=== PATIENT | female | born 1970 | race Caucasian/White ===

== ENCOUNTER → 2023-04-08 11:00 | Outpatient (REF) | payer OTHER, SELFPAY | LOC: HWWDC 11:00 | PROVIDERS: ATTENDING PHYSICIAN Physician Assistant Medical | DX: Z12.31 Encounter for screening mammogram for malignant neoplasm of breast (principal) | CPT/HCPCS: 77063; 77067 ==

== ENCOUNTER 2023-08-21 12:18 | Emergency (ER) | payer OTHER, SELFPAY ==
[2023-08-21 12:19] VITALS: BP 160/110
[2023-08-21 12:36] VITALS: BP 145/127
[2023-08-21 12:53] LABS: % Basophils 1.7 % (0-2); % Eosinophils 3.9 % (0-6); % Immature Granulocytes 0.3 % (0-0.5); % Lymphocytes 30.9 % (20.5-51.1); % Neutrophils 58.2 % (42.2-75.2); Absolute Basophils 0.1 10^3/uL (0-0.2); Absolute Eosinophils 0.3 10^3/uL (0-0.7); Absolute Monocytes 0.3 10^3/uL (0.1-0.6); Absolute Neutrophils 3.8 10^3/uL (1.4-6.5); Hematocrit 39.3 % (37.0-47.0); Hemoglobin 13.8 g/dL (12.0-16.0); Mean Corp Hgb Conc. 35.1 g/dL (33.0-37.0); Mean Corpuscular Hgb 29.2 pg (27.0-31.0); Mean Corpuscular Volume 83.1 fL (81.0-99.0); Mean Platelet Volume 8.6 fL (7.4-10.4); Nucleated Red Blood Cells % 0 %; Platelet Count 360 10^3/uL (130-400); Red Blood Cell Count 4.73 10^6/uL (4.20-5.40); White Blood Cell Count 6.6 10^3/uL (4.8-10.8)
[2023-08-21 13:00] VITALS: BP 133/86
[2023-08-21 13:09] LABS: ALT (SGPT) 19 U/L (0-35); AST (SGOT) 27 U/L (14-36); Albumin 4.6 g/dl (3.5-5.0); Alkaline Phosphatase 129 U/L (38-126); Blood Urea Nitrogen 13 mg/dl (7-17); Calcium 9.9 mg/dl (8.4-10.2); Carbon Dioxide 25 mmol/L (22-30); Chloride 108 mmol/L (98-107); Glucose 109 mg/dl (70-99); Potassium 4.5 mmol/L (3.5-5.1); Sodium 141 mmol/L (135-145); Total Protein 7.7 g/dl (6.3-8.2); eGFR > 60.00
[2023-08-21 13:21] LABS: Troponin I < 0.012 ng/ml
[2023-08-21 13:52] LABS: TSH 0.99 uIU/ml (0.47-4.68)
[2023-08-21 14:00] VITALS: BP 131/91
--- NOTE | 2023-08-21 14:26 | ED.GENMED ---
History of Present Illness
General
Chief Complaint: Heart Rate Problem
Source: patient
Time Seen by Provider: 08/21/23 12:59
Travel History
Have you had any contact with someone who has COVID-19?: No
Do you have any symptoms of coronavirus? Fever > 100 degrees, chills, cough, shortness of breath, sore throat, loss of taste or smell, muscle aches, or headache?: No
History of Present Illness
History of Present Illness:
53-year-old female with past medical history of asthma and frequent headaches presenting to the emergency department for evaluation after she awoke early this morning feeling the need to urinate and upon awakening noticed her heart rate was elevated
and as if she were in atrial fibrillation. Patient states that she has never been in atrial fibrillation before but imagine that this is what it felt like. She notes a strong family history of A-fib. She states she was able to fall back asleep
but upon awakening again she still felt the palpitations and put her on her Apple Watch which told her she was in atrial fibrillation with a heart rate around 180 bpm. Patient states this persisted throughout the rest of the morning so she decided
to come to the emergency department however upon getting to the emergency department she felt her symptoms had fully dissipated she denies any chest pain, diaphoresis, exertional dyspnea, orthopnea, cough, fevers or recent illnesses or any other
concerns. Patient notes minimal caffeine intake as well as denies any recent alcohol use.
Past History
Past History
ED Past Medical History: Other (LANDEROS)
ED Past Surgical History: Gynecological
Social History
Tobacco: Non-smoker
Alcohol: Occasional
Drug: None
Personal: Single
Living: alone
Employment: Employed
Review of Systems
Review of Systems
All Other Systems: ROS reviewed and negative except as documented in HPI and ROS
Phy Exam
Physical Exam
Physical Exam:
GENERAL: Alert , in no apparent distress, smiling and pleasant
EYE: conjunctiva clear
NECK: Supple
ENT: o/p clr, mmm.
CARDIAC: Borderline tachycardic rate and rhythm, no murmur
LUNGS: Clear breath sounds bilaterally, no acute respiratory distress, no wheezes/rales/rhonchi
NEUROLOGICAL: Alert and oriented
SKIN: Warm and dry, skin intact.
MUSCULOSKELETAL: well perfused.
PSYCH: Normal and appropriate interaction.
Scores
[id number] Score for Afib Stroke Risk
Age in Years (65=0, 65-74=1, >/=75=2): <65
Sex (Female=+1): Female
Congestive Heart Failure History (Yes=+1): No
Hypertension History (Yes=+1): Yes
Stroke/TIA/Thromboembolism History (Yes=+2): No
Vascular Disease History (Yes=+1): No
Diabetes Mellitus (Yes=+1): No
Score: 2
Anticoagulation Recommendations: Recommend anticoagulation (as validated in nonvalvular fib)
Heart Failure Risk
Heart Failure Risk Score: Not Applicable
Heart Score for Chest Pain Patients
STEMI patient?: Not applicable
Withdrawal Assessment of Alcohol
Withdrawal Assessment Completed?: Not applicable
Course
Orders/Labs/Results
Orders:
Orders
08/21/23 12:19
Electrocardiogram (*1) Urgent
Reason for Study: Tachycardia
EKG- Treatment ONCE
08/21/23 12:42
Complete Blood Count/With Diff Urgent
Comprehensive Metabolic Panel Urgent
Magnesium Urgent
TSH Urgent
Troponin I Urgent
Abnormal Lab Results
08/21/23
12:42
Chloride 108 H mmol/L
(98-107)
Glucose 109 H mg/dl
(70-99)
Alkaline Phosphatase 129 H U/L
(38-126)
08/21/23 12:42
08/21/23 12:42
Vital Signs
Initial and Last Documented VS:
Initial Vital Signs
Temp Pulse Resp BP Pulse Ox
99.3 F 122 20 160/110 98
08/21/23 12:19 08/21/23 12:19 08/21/23 12:19 08/21/23 12:19 08/21/23 12:19
Last Documented Vital Signs
Temp Pulse Resp BP Pulse Ox
99.3 F 95 17 131/91 99
08/21/23 12:19 08/21/23 14:30 08/21/23 14:15 08/21/23 14:00 08/21/23 14:30
MDM/Problems Addressed
Differential Diagnosis Includes:
Cardiac dysrhythmia, electrolyte disturbance, thyroid disorder
MDM/Problems Addressed:
53-year-old female presenting to the emergency department for evaluation believing she was in atrial fibrillation for at least 10 to 12 hours upon arrival to the emergency department. Symptoms resolved and patient states she is otherwise
asymptomatic. Patient still is mildly tachycardic however hemodynamically stable. She is very pleasant and overall well-appearing. Patient is currently in a normal sinus rhythm. We reviewed her Apple Watch history which does show patient went
into atrial fibrillation when she put her watch on and this lasted until about 9 AM. There were rhythm strips with this which do appear to have a rhythm consistent with atrial fibrillation. I discussed the case with on-call equity structurer,
Nadeem, and given the patient is a [id number] score of 2 combined with her presentation and suspicion that she was actually in atrial fibrillation we decided it would be best to initiate her on anticoagulants. Prescription for Eliquis
provided. Patient was given a coupon for the first 30 days of use. She remained hemodynamically stable and in no acute distress. She was advised on return precautions emergency department. Chest pain hotline was notified to expedite outpatient
visit.
*Pulse Oximetry
Patient hypoxic: no
*EKG
Interpreted by ED Provider?: Yes
Heart Rate: 102
Rate: tachycardiac
Rhythm: sinus
[place]: normal axis
Ischemia: no ischemia
*Gas Or Water Meter Installer Interpretation
Rate: normal
Rhythm: sinus
*Critical Care Note
Total Time (30-74mins, 75-104mins- exclusive of procedures): Not Applicable
Patient Management
Discussion with other providers: Sterile Processing Technician
ED Attending Note
-
Portions of this chart may have been created with voice recognition software.� Occasional wrong word or��sound alike� substitutions may have occurred due to the inherent limitations of voice recognition software.
Discharge Plan
Departure
Patient Disposition: Home (Routine Discharge)
Date of Disposition: 08/21/23
Time of Disposition: 14:27
Patient with high blood pressure during this ER visit?: Yes
Discharge Problem:
Atrial fibrillation
Instructions: Atrial Fibrillation (DC), Chest Pain DCA Follow Up
Prescriptions:
New
Eliquis 5 mg tablet
5 mg PO BID Qty: 60 0RF
No Action
Albuterol
inhalation PRN (Reason: asthma symptoms)
fluticasone propion-salmeterol [Advair Diskus] 1 EACH blister with device
1 ea IH BID
naproxen 500 MG tablet
500 mg PO PRN (Reason: pain)
Multivitamin
1 tab PO DAILY
Singulair:
10 mg PO HS
Zyrtec:
10 mg PO DAILY
sulfamethoxazole-trimethoprim 1 TABLET tablet
1 tab PO Q12H Qty: 20 0RF
Referrals:
Jenelle Beltran PA [Family Provider] -
Interventions
Interventions:
*ED COVID-19 Vaccine History Last Done: 08/21/23 12:19
*Nursing Disposition Last Done: 08/21/23 14:52
ED- Cardiac Assessment Last Done: 08/21/23 13:09
ED- Pulmonary Assessment Last Done: 08/21/23 13:09
Discharge Date and Time
Discharge Date/Time: 08/21/23 14:52
Print Language: YEMENI
== END 2023-08-21 14:52 | disposition home or self-care (01) ==
LOC: EMR 12:18
PROVIDERS: Physician Assistant; EMERGENCY PHYSICIAN Emergency Medicine; FAMILY PHYSICIAN Physician Assistant Medical
DX: I48.91 Unspecified atrial fibrillation (principal); R03.0 Elevated blood-pressure reading, without diagnosis of hypertension; J45.909 Unspecified asthma, uncomplicated; Z79.01 Long term (current) use of anticoagulants; Z88.1 Allergy status to other antibiotic agents; Z88.0 Allergy status to penicillin; Z91.048 Other nonmedicinal substance allergy status
CPT/HCPCS: 99283; 80053; 83735; 84443; 84484; 85025; 93005

== ENCOUNTER → 2023-09-05 15:53 | Outpatient (REF) | payer OTHER, SELFPAY | LOC: HWRCS 15:53 | PROVIDERS: ATTENDING PHYSICIAN Internal Medicine Cardiovascular Disease; FAMILY PHYSICIAN Physician Assistant Medical | DX: I10 Essential (primary) hypertension (principal); E78.2 Mixed hyperlipidemia | CPT/HCPCS: 93306 ==

== ENCOUNTER → 2023-09-30 09:22 | Outpatient (REF) | payer OTHER, SELFPAY ==
[2023-10-02 20:05] LABS: Quantiferon Mitogen minus NIL 9.97 IU/mL; Quantiferon NIL 0.03 IU/mL; Quantiferon Plus TB1 minus NIL 0.01 IU/mL (<=0.34); Quantiferon Plus TB2 minus NIL 0.01 IU/mL (<=0.34); Quantiferon TB Gold Plus Negative (Negative)
== END ==
LOC: OHS 09:22
PROVIDERS: ATTENDING PHYSICIAN Nurse Practitioner Family
DX: Z23 Encounter for immunization (principal)
CPT/HCPCS: 36415; 86480; 86787

== ENCOUNTER → 2024-04-20 14:39 | Outpatient (REF) | payer OTHER, SELFPAY | LOC: DHSLP 14:39 | PROVIDERS: ATTENDING PHYSICIAN Internal Medicine; FAMILY PHYSICIAN Physician Assistant Medical | DX: G47.33 Obstructive sleep apnea (adult) (pediatric) (principal) | CPT/HCPCS: 95800 ==

== ENCOUNTER 2024-08-06 02:56 | Emergency (ER) | payer OTHER, SELFPAY ==
[2024-08-06 03:07] VITALS: BP 169/103
[2024-08-06 03:37] VITALS: BP 166/94
[2024-08-06 03:54] LABS: Hematocrit 40.4 % (37.0-47.0); Hemoglobin 13.4 g/dL (12.0-16.0); Mean Corp Hgb Conc. 33.2 g/dL (33.0-37.0); Mean Corpuscular Hgb 29.6 pg (27.0-31.0); Mean Corpuscular Volume 89.2 fL (81.0-99.0); Mean Platelet Volume 8.9 fL (7.4-10.4); Platelet Count 309 10^3/uL (130-400); Red Blood Cell Count 4.53 10^6/uL (4.20-5.40); Red Cell Dist. Width 13.2 % (11.5-14.5); White Blood Cell Count 8.2 10^3/uL (4.8-10.8)
[2024-08-06 04:00] VITALS: BP 154/76
[2024-08-06 04:10] LABS: ALT (SGPT) 19 U/L (0-35); AST (SGOT) 20 U/L (14-36); Albumin 4.7 g/dl (3.5-5.0); Alkaline Phosphatase 109 U/L (38-126); Blood Urea Nitrogen 18 mg/dl (7-17); Calcium 9.5 mg/dl (8.4-10.2); Carbon Dioxide 26 mmol/L (22-30); Chloride 108 mmol/L (98-107); Glucose 92 mg/dl (70-99); Potassium 3.7 mmol/L (3.5-5.1); Sodium 141 mmol/L (135-145); Total Bilirubin 0.9 mg/dl (0.2-1.3); Total Protein 7.6 g/dl (6.3-8.2); eGFR > 60.00
[2024-08-06 04:21] LABS: Troponin I < 0.012 ng/ml
[2024-08-06] MEDS: NSS 1000 IV (04:36)
[2024-08-06 05:05] VITALS: BP 130/74
[2024-08-06 05:44] LABS: TSH Reflex To Free T4 2.29 uIU/ml (0.47-4.68)
--- NOTE | 2024-08-06 05:47 | ED.GENMED ---
History of Present Illness
General
Chief Complaint: Heart Rate Problem
Source: patient and previous hospital records (ED visit August 2023 with some similar complaints of palpitations.)
Exam Limitations: none
Time Seen by Provider: 08/06/24 03:57
Nursing documentation reviewed up to this point in time: agreed with
History of Present Illness
History of Present Illness:
This is a 54-year-old woman with history of paroxysmal atrial fibrillation, had 1 episode of PAF noted on her Apple Watch 1 year ago. She was having palpitations at that time and was evaluated in this ED August 2023. EKG showed sinus tachycardia,
tubing machine tender showed sinus tachycardia to normal sinus rhythm but upon review of her Apple Watch there was note of atrial fibrillation with rapid ventricular response.
She was started on Eliquis and continues with Eliquis and has since followed up with cardiology, Dr. Homero Silver with reported unremarkable cardiac workup.
Yesterday evening around dinnertime patient noted some palpitations, feeling that her heart was beating rapidly but not irregular and not as pronounced as prior episode of A-fib.
This morning she awoke with similar palpitations and noted that her Apple Watch noted her heart rate was 110-150 but did not demonstrate atrial fibrillation. Rapid heart rate persisted for about an hour thus she presented to the ED. No associated
symptoms. She denies chest pain, no diaphoresis, no nausea nor vomiting. She denies congestion nor cough and has not had a fever.
No recent travel. No leg pain or swelling.
She denies significant caffeine intake. Denies drug or alcohol use.
Past History
Past History
ED Past Medical History: Arrthythmia (Atrial fibrillation. 1 previous episode August 2023. Noted on Apple Watch), Asthma and Other (LANDEROS)
ED Past Surgical History: Gynecological (Hysterectomy)
Social History
Tobacco: Non-smoker
Alcohol: Occasional
Drug: None
Personal: Single
Living: alone
Employment: Employed
Family History
Family History: Other (Family history of atrial fibrillation)
Phy Exam
Physical Exam
Physical Exam:
GENERAL: 54-year-old woman appears her stated age, awake and alert, pleasant, appears in no acute distress.
EYE: anicteric
NECK: Supple, nontender, no meningismus, no significant adenopathy.
ENT: oral mucosa is moist. No rhinorrhea.
CARDIAC: Regular rhythm, mildly tachycardic. no murmur.
LUNGS: Clear breath sounds bilaterally, no acute respiratory distress, no wheezes/rales/rhonchi
ABDOMEN: Soft, nondistended, without focal tenderness
NEUROLOGICAL: Alert and oriented x3, no focal neuro deficits. Gait is [place] and steady.
SKIN: Warm and dry, normal color, skin intact. No rash.
MUSCULOSKELETAL: No C/C/E. peripheral pulses are full and equal b/l. No palpable tenderness.
PSYCH: Normal and appropriate interaction.
Course
Orders/Labs/Results
Orders:
Orders
08/06/24 03:06
Electrocardiogram (*1) Urgent
Reason for Study: Other
Other Reason for Exam: high heart rate
EKG- Treatment ONCE
08/06/24 03:38
Complete Blood Count/No Diff Urgent
Comprehensive Metabolic Panel Urgent
TSH Reflex To Free T4 Urgent
Comment: ADD ON
Troponin I Urgent
08/06/24 04:31
Add On- LAB Urgent
Tests Added?: TSH w reflex to free T-4
0.9% Sodium Chloride 1000 ml [Nss] 1,000 ml IV BOLUS
Abnormal Lab Results
08/06/24
03:38
Chloride 108 H mmol/L
(98-107)
BUN 18 H mg/dl
(7-17)
08/06/24 03:38
08/06/24 03:38
Vital Signs
Initial and Last Documented VS:
Initial Vital Signs
Temp Pulse Resp BP Pulse Ox
97.8 F 114 18 169/103 100
08/06/24 03:07 08/06/24 03:07 08/06/24 03:07 08/06/24 03:07 08/06/24 03:07
Last Documented Vital Signs
Temp Pulse Resp BP Pulse Ox
97.8 F 84 18 130/74 98
08/06/24 03:07 08/06/24 05:05 08/06/24 05:05 08/06/24 05:05 08/06/24 05:05
MDM/Problems Addressed
Differential Diagnosis Includes:
Patient noted to have sinus tachycardia on tubing machine tender as well as EKG. Similar sinus tachycardia noted 1 year ago. EKG is very similar.
Upon review of Apple Watch, palpitations correlate with sinus tachycardia. No episodes of atrial fibrillation recorded on Apple Watch.
Patient has been compliant with Eliquis, PE is unlikely.
No URI symptoms, no history of fever and she is currently afebrile.
Concern for potential thyroid disorder, electrolyte abnormality, anemia. Labs are pending.
She remains hemodynamically stable.
Will hydrate with IV fluids and continue tubing machine tender.
Chronic conditions affecting care: Arrhythmia
Acute Exacerbation and/or Progression of Chronic Illness: Arrhythmia
*Pulse Oximetry
Patient hypoxic: no
*EKG
Interpreted by ED Provider?: Yes
Comparison EKG: no changes (Unchanged from previous August 2023)
Rate: tachycardiac
Rhythm: sinus
[place]: normal axis
Interval: normal interval
QRS Pattern: normal QRS
Ischemia: no ischemia
*Treating And Pumping Supervisor Interpretation
Rate: normal and tachycardiac
Rhythm: sinus
*Critical Care Note
Total Time (30-74mins, 75-104mins- exclusive of procedures): Not Applicable
Update Note
Update Note:
06:00
Monitor shows normal sinus rhythm 80-100.
Labs are unremarkable save for minimally elevated BUN to creatinine ratio. TSH is normal. Troponin is negative as expected.
Will discharge to home with recommendations to stay well-hydrated on a daily basis.
Avoid caffeinated beverages.
Follow-up with ticketing clerk.
ED Attending Note
-
Portions of this chart may have been created with voice recognition software.� Occasional wrong word or��sound alike� substitutions may have occurred due to the inherent limitations of voice recognition software.
Discharge Plan
Departure
Patient Disposition: Home (Routine Discharge)
Date of Disposition: 08/06/24
Time of Disposition: 05:58
Patient with high blood pressure during this ER visit?: No
Condition: Good
Discharge Problem:
Sinus tachycardia, Heart palpitations
Instructions: Sinus Tachycardia (DC)
Prescriptions:
No Action
Albuterol
inhalation PRN (Reason: asthma symptoms)
fluticasone propion-salmeterol [Advair Diskus] 1 EACH blister with device
1 ea IH BID
naproxen 500 MG tablet
500 mg PO PRN (Reason: pain)
Multivitamin
1 tab PO DAILY
Singulair:
10 mg PO HS
Zyrtec:
10 mg PO DAILY
sulfamethoxazole-trimethoprim 1 TABLET tablet
1 tab PO Q12H Qty: 20 0RF
Eliquis 5 mg tablet
5 mg PO BID Qty: 60 0RF
Referrals:
Jenelle Beltran PA [Family Provider, Family Practice]
Milo Silver MD [Active, Cardiology] - Call in 1-3 days for appt
Interventions
Interventions:
*Risk Screen - Suicide Last Done: 08/06/24 03:07
*General Assessment Last Done: 08/06/24 03:42
*Neglect/Abuse Screening Last Done: 08/06/24 03:07
*ED- Fall Risk Assessment Last Done: 08/06/24 03:07
*ED COVID-19 Vaccine History Last Done: 08/06/24 03:07
ED- Cardiac Assessment Last Done: 08/06/24 03:42
ED- Pulmonary Assessment Last Done: 08/06/24 03:42
Discharge Date and Time
Print Language: SERBIAN
[2024-08-06 05:59] VITALS: BP 138/72
== END 2024-08-06 06:05 | disposition home or self-care (01) ==
LOC: EMR 02:56
PROVIDERS: EMERGENCY PHYSICIAN Emergency Medicine; FAMILY PHYSICIAN Physician Assistant Medical
DX: R00.2 Palpitations (principal); R00.0 Tachycardia, unspecified; I48.0 Paroxysmal atrial fibrillation; J45.909 Unspecified asthma, uncomplicated; Z79.01 Long term (current) use of anticoagulants; Z88.1 Allergy status to other antibiotic agents; Z88.0 Allergy status to penicillin; Z91.048 Other nonmedicinal substance allergy status
CPT/HCPCS: 99284; 96360; 80053; 84443; 84484; 85027; 93005

== ENCOUNTER 2024-10-20 09:58 | Emergency (ER) | payer OTHER, SELFPAY ==
[2024-10-20 10:09] VITALS: BP 151/84
[2024-10-20] MEDS: PEPCID 20 MG IV (12:06)
[2024-10-20 13:01] VITALS: BP 138/68
--- NOTE | 2024-10-20 13:33 | ED.GENMED ---
History of Present Illness
General
Chief Complaint: Allergic Reaction
Source: patient
Exam Limitations: none
Time Seen by Provider: 10/20/24 11:53
History of Present Illness
History of Present Illness:
Patient presents with allergic symptoms. Hives erythema some shortness of breath. Started this morning. No known precipitant. Patient did have poison omid a few weeks ago and was on steroids at that time. However that is improving. No history
of same. Much better on ER arrival after 50 mg of Benadryl
Past History
Past History
ED Past Medical History: Arrthythmia (Atrial fibrillation. 1 previous episode August 2023. Noted on Apple Watch), Asthma and Other (LANDEROS)
ED Past Surgical History: Gynecological (Hysterectomy)
Social History
Tobacco: Non-smoker
Alcohol: Occasional
Drug: None
Personal: Single
Living: alone
Employment: Employed
Family History
Family History: Other (Family history of atrial fibrillation)
Review of Systems
Review of Systems
All Other Systems: Not applicable
Phy Exam
Physical Exam
Physical Exam:
GENERAL: Alert and oriented in no apparent distress
EYE: Orbits normal.
NECK: Supple
ENT: No neck swelling. No drooling no stridor speech normal
CARDIAC: Regular rate and rhythm without any obvious murmurs.
LUNGS: Clear breath sounds,normal
ABDOMEN: Soft, without focal tenderness or distention
NEUROLOGICAL: Alert and oriented , grossly non-focal
SKIN: Warm and dry, no hives or erythema at this time. A few linear excoriations to the left forearm consistent with old poison omid
MUSCULOSKELETAL: No edema,no deformity.Good color
PSYCH: Normal and appropriate interaction.
Course
Orders/Labs/Results
Orders:
Orders
10/20/24 12:03
Famotidine [Pepcid] 20 mg IV NOW STA
Vital Signs
Initial and Last Documented VS:
Initial Vital Signs
Temp Pulse Resp BP Pulse Ox
98.2 F 105 16 151/84 100
10/20/24 10:09 10/20/24 10:09 10/20/24 10:09 10/20/24 10:09 10/20/24 10:09
Last Documented Vital Signs
Temp Pulse Resp BP Pulse Ox
98.2 F 71 15 138/68 96
10/20/24 10:09 10/20/24 13:30 10/20/24 13:30 10/20/24 13:01 10/20/24 13:30
MDM/Problems Addressed
Differential Diagnosis Includes:
Patient with an acute allergic reaction. Given H1 prabha prehospital. Steroids prehospital. Add H2 prabha. No indication for acute epi. Rechecked and stable. Will discharge on the above.
*Pulse Oximetry
SaO2: 96
Oxygen Mode of Delivery: Room air
Patient hypoxic: no
*Digital Commentator Interpretation
Rate: normal
Interpretation: normal
Heart Rate: 88
Rhythm: sinus
*Critical Care Note
Total Time (30-74mins, 75-104mins- exclusive of procedures): Not Applicable
ED Attending Note
-
Portions of this chart may have been created with voice recognition software.� Occasional wrong word or��sound alike� substitutions may have occurred due to the inherent limitations of voice recognition software.
Discharge Plan
Departure
Patient Disposition: Home (Routine Discharge)
Date of Disposition: 10/20/24
Time of Disposition: 13:35
Patient with high blood pressure during this ER visit?: Yes
Discharge Problem:
Acute allergic reaction
Instructions: Allergic reaction - ED discharge instructions, BLOOD PRESSURE
Prescriptions:
New
epinephrine [EpiPen 2-Ish] 0.3 mg/0.3 mL auto-injector
0.3 ml IM Q5-15M PRN (Reason: anaphylaxis) Qty: 2 0RF
prednisone 50 mg tablet
50 mg PO DAILY Qty: 4 0RF
No Action
Albuterol
inhalation PRN (Reason: asthma symptoms)
fluticasone propion-salmeterol [Advair Diskus] 1 EACH blister with device
1 ea IH BID
naproxen 500 MG tablet
500 mg PO PRN (Reason: pain)
Multivitamin
1 tab PO DAILY
Singulair:
10 mg PO HS
Zyrtec:
10 mg PO DAILY
sulfamethoxazole-trimethoprim 1 TABLET tablet
1 tab PO Q12H Qty: 20 0RF
Eliquis 5 mg tablet
5 mg PO BID Qty: 60 0RF
Referrals:
Jenelle Beltran PA [Family Provider, Family Practice] - Follow up in 2-3 days
Activity Restrictions/Additional Instructions:
As we discussed, take the steroids and Pepcid.
Continue your Zyrtec
Epinephrine if life-threatening
Follow-up closely with your physician
Interventions
Interventions:
*Risk Screen - Suicide Last Done: 10/20/24 10:09
*General Assessment Last Done: 10/20/24 11:16
*Neglect/Abuse Screening Last Done: 10/20/24 10:09
*ED- Fall Risk Assessment Last Done: 10/20/24 11:16
*ED COVID-19 Vaccine History Last Done: 10/20/24 11:16
ED- Cardiac Assessment Last Done: 10/20/24 11:17
ED- Pulmonary Assessment Last Done: 10/20/24 11:17
ED-Skin Assessment Last Done: 10/20/24 11:17
Discharge Date and Time
Print Language: GREENLANDIC
== END 2024-10-20 13:54 | disposition home or self-care (01) ==
LOC: EMR 09:58
PROVIDERS: EMERGENCY PHYSICIAN Emergency Medicine; FAMILY PHYSICIAN Physician Assistant Medical
DX: T78.40XA Allergy, unspecified, initial encounter (principal); X58.XXXA Exposure to other specified factors, initial encounter; I48.91 Unspecified atrial fibrillation; J45.909 Unspecified asthma, uncomplicated
CPT/HCPCS: 99284; 96374